=== PATIENT | male | born 1945 | race Caucasian/White ===

== ENCOUNTER 2024-01-10 18:24 | Emergency (ER) | payer OTHER ==
[~2024-01-10] VITALS: Ht 180.3 cm; Wt 72.6 kg
[2024-01-10 18:30] VITALS: BP_SYST 215; PULSE 66; RESP 14; TEMP 97.2; O2SAT 99
[2024-01-10] MEDS ORDERED: IBUP-1969 PO (20:12)
== END 2024-01-10 20:25 | disposition home or self-care (01) ==
LOC: SED 18:24
DX: M25.531 Pain in right wrist (principal); M25.521 Pain in right elbow; E11.9 Type 2 diabetes mellitus without complications; I10 Essential (primary) hypertension; Z88.1 Allergy status to other antibiotic agents; Z88.2 Allergy status to sulfonamides; W01.0XXA Fall on same level from slipping, tripping and stumbling without subsequent striking against object, initial encounter; Y93.89 Activity, other specified; Y92.242 Post office as the place of occurrence of the external cause; Y99.8 Other external cause status
CPT/HCPCS: 99284